=== PATIENT | female | born 1995 | race Caucasian/White ===

== ENCOUNTER 2018-05-28 17:49 | Emergency (ER) | payer OTHER ==
[~2018-05-28] VITALS: Ht 170.2 cm; Wt 68.2 kg
[2018-05-28 17:53] VITALS: BP 131/85; TEMP 98.5
[2018-05-28] MEDS ORDERED: MELATONIN1 MG PO (18:13)
[2018-05-28 19:32] VITALS: PULSE 70
== END 2018-05-28 19:36 | disposition home or self-care (01) ==
LOC: COL.ER 17:49
DX: S09.90XA Unspecified injury of head, initial encounter (principal); S16.1XXA Strain of muscle, fascia and tendon at neck level, initial encounter; S00.83XA Contusion of other part of head, initial encounter; F32.9 Major depressive disorder, single episode, unspecified; F41.9 Anxiety disorder, unspecified; F17.210 Nicotine dependence, cigarettes, uncomplicated; Z23 Encounter for immunization; Y04.8XXA Assault by other bodily force, initial encounter